=== PATIENT | female | born 1975 | race Two or more races ===

== ENCOUNTER 2017-02-13 21:37 | Emergency (ER) | payer MEDICAID, OTHER ==
[~2017-02-13] VITALS: Ht 162.6 cm; Wt 90.7 kg
[2017-02-13 21:46] VITALS: BP 138/87
[2017-02-14] MEDS ORDERED: CYCLOBENZAPRINE HCL 10 MG TAB PO ONE (02:30)
[2017-02-14] MEDS ORDERED: IBUPROFEN 600 MG TAB PO ONE (02:30)
== END 2017-02-14 02:38 | disposition home or self-care (01) ==
LOC: ER 21:50
DX: S46.911A Strain of unspecified muscle, fascia and tendon at shoulder and upper arm level, right arm, initial encounter (principal); S46.811A Strain of other muscles, fascia and tendons at shoulder and upper arm level, right arm, initial encounter; R07.89 Other chest pain; V49.49XA Driver injured in collision with other motor vehicles in traffic accident, initial encounter; Y93.89 Activity, other specified; Y99.8 Other external cause status; Y92.410 Unspecified street and highway as the place of occurrence of the external cause
CPT/HCPCS: 71010; 73020; 73030